=== PATIENT | male | born 1950 | race Caucasian/White ===

== ENCOUNTER 2019-07-27 15:46 | Inpatient (IN) | payer MEDICARE, OTHER, SELFPAY ==
[2019-07-27] MEDS ORDERED: Nitroglycerin 50 MG/250 ML BOT 250 ML ONE (15:55)
[2019-07-27 16:07] LABS: Actual Bicarbonate (HCO3a) 26.2 mEq/L (22-28); Analyzer IN Cardio ER; Base Excess (BEa) -3.2 mEq/L (-2.0 to +3.0); Calcium, Ionized 1.19 mmol/L (1.12-1.30); Carboxyhemoglobin (COHb) 1.1 gm% (0.0-3.0); Hemoglobin (Hb) 16.7 g/dL (14.0-18.0); O2 Tension (PaO2) 145.8 mmHg (> 80.0); Potassium - ABG Lab 4.27 mmol/L (3.70-5.30)
[2019-07-27 16:08] LABS: CO2 Tension 65.1 mmHg (35.0-45.0); pH, Arterial 7.22 (7.35-7.45)
[2019-07-27] MEDS ORDERED: Labetalol HCl 100 MG/20 ML VIAL ONE (16:08)
[2019-07-27] MEDS ORDERED: Furosemide 40 MG/4 ML VIAL ONE (16:08)
[2019-07-27 16:09] LABS: ALV-art Gradient 58.025 (0-20); Puncture Site LRA
[2019-07-27 16:16] LABS: #Basophils 0.1 thou/uL (0.0-0.2); #Eosinphils 0.1 thou/uL (0.0-0.7); #Lymphocytes 3.1 thou/uL (1.20-3.40); #Monocytes 0.7 thou/uL (0.11-0.59); %Basophils 0.4 % (0.0-1.0); %Monocytes 4.6 % (0.0-10.0); %Neutrophils 71.9 % (42.0-75.0); Hemoglobin 16.3 g/dL (14.0-18.0); Mean Corpuscular HGB CONC 32.1 g/dL (32.0-36.0); Mean Corpuscular Hemoglobin 28.4 pg (27.0-31.0); Mean Corpuscular Volume 88.5 fL (78.0-98.0); Mean Platelet Volume 8.1 fL (7.4-10.4); Platelet Count 223 thou/uL (130-400); RBC Distribution Width 13.3 % (11.5-14.5); Red Blood Cell (RBC) Count 5.72 mill/uL (4.70-6.10); White Blood Cell (WBC) Count 13.9 thou/uL (4.8-10.8)
--- NOTE | 2019-07-27 16:29 | RAD ---
Exam: Chest one view HISTORY: Difficulty breathing. Decreased O2 saturation on room air. Comparison: The 2014 FINDINGS: Cardiac silhouette:Upper normal cardiac silhouette. Aorta: Atherosclerosis of the aortic knob Pulmonary vessels: Normal Costophrenic angles: Small right-sided pleural effusion. LUNGS: Patchy interstitial and alveolar opacities. Lungs are hyperinflated. Pneumothorax: None Osseous abnormalities: None IMPRESSION: Possible volume overload. Superimposed bibasilar pneumonia and/or aspiration cannot be excluded. Cont inued surveillance is recommended
[2019-07-27 16:45] LABS: ALT (SGPT) 24 U/L (8-55); AST (SGOT) 26 U/L (5-34); Albumin 4.5 g/dL (3.4-4.8); Alkaline Phosphatase 89 U/L (40-110); Anion Gap 16 mmol/L (10-20); BUN (Urea Nitrogen) 19 mg/dL (8.4-25.7); Bilirubin, Total 0.6 mg/dL (0.2-1.2); Calc. Creatinine Clearance 0 mL/min (70-130); Carbon Dioxide 26 mmol/L (23-31); Chloride 103 mmol/L (98-107); Estimated GFR-MDRD 74; Glucose 193 mg/dL (80-115); Lipase 20 U/L (8-78); Magnesium 2.2 mg/dL (1.6-2.6); Potassium 4.7 mmol/L (3.5-5.1); Protein, Total 7.5 g/dL (5.8-8.1); Sodium 140 mmol/L (136-145)
[2019-07-27] MEDS ORDERED: Nitroglycerin 2% Ointment 1 INCH/1 GM Packet ONE (17:49)
[2019-07-27 18:06] LABS: Bacteria/HPF 4+ HPF (None Seen); Bilirubin Negative (Negative); Blood, Urine Trace (Negative); Clarity Clear (Clear); Glucose, Urine (Dipstick) Normal (Negative); Leukocyte Negative Leu/uL (Negative); Nitrite Negative (Negative); Protein, Urine (Dipstick) 10 mg/dL (Neg-Trace); RBC/HPF 0-3 HPF (0-3); Squamous Epithelial None Seen HPF (0-3); Urobilinogen Normal mg/dL (Less than 2); WBC/HPF 0-3 HPF (0-3)
--- NOTE | 2019-07-27 18:19 | PDOC.FPRHP ---
- History of Present Illness Chief Complaint: SOB History of Present Illness: Patient is a 69M with PMHx of 2 strokes, 2 FL, and HTN that presented to the ED with acute onset SOB. Patient reports that he had one episode of SOB on Thursday. Daughter described that it looked like patient was "hyperventilating." Patient then had another acute-onset episode of SOB today which caused him to come to the ED. Per patient he quit smoking cigarettes 1 month ago and asked for a cigarette today, thinks that that may be what caused his SOB. Patient denies cp at this time, and on evaluation is resting comfortably on the bipap machine. Had initial BP in ED of 208/162, which has since normalized with nitro drip and labetalol. Patient has had kidney stones in the past, 2013, and saw Dr. Paredes at that time but has not seen him since then. 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 denies: cough Cardiovascular: reports: edema. denies: chest pain Gastrointestinal: denies: nausea, vomiting, diarrhea Genitourinary: reports: incontinence. denies: discharge Skin: denies: lesions, jaundice Musculoskeletal: reports: swelling. denies: pain Neurological: reports: other (left-sided paralysis) Psychological: denies: anxiety, depression - Vital signs BP: [139/93] HR: [99] RR: [26] Tmax: [98.4] Pox: [99]% on [bipap] Wt: [113.4kg ] - Physical Exam Constitutional: NAD, awake, alert and oriented HEENT: EOMI, MMM Neck: supple, FROM Chest: no-tender to palpation, no lesions Heart: RRR, normal S1/S2, other (1+ pitting edema LLE) Lungs: other (crackles throughout, moreso lung bases) Abdomen: soft, non-tender Musculoskeletal: normal structure, normal tone, other (poor movement of left arm adn leg) Neurological: normal sensation, other (poor movement of left arm and leg, though can wiggle fingers and toes) Skin: good turgor, no jaundice Heme/Lymphatic: no unusual bruising or bleeding, no purpura Psychiatric: normal mood and affect, good judgment and insight FMR H&P: Results - Labs Result Diagrams: 07/28/19 02:14 07/28/19 02:14 Lab results: WBC 13.9 thou/uL (4.8-10.8) H 07/27/19 16:00 Hgb 16.3 g/dL (14.0-18.0) 07/27/19 16:00 Hct 50.6 % (42.0-52.0) 07/27/19 16:00 MCV 88.5 fL (78.0-98.0) 07/27/19 16:00 Plt Count 223 thou/uL (130-400) 07/27/19 16:00 Neutrophils % 71.9 % (42.0-75.0) 07/27/19 16:00 ABG pH 7.22 (7.35-7.45) L* 07/27/19 16:03 ABG pCO2 65.1 mmHg (35.0-45.0) H* 07/27/19 16:03 ABG pO2 145.8 mmHg (> 80.0) H 07/27/19 16:03 Sodium 140 mmol/L (136-145) 07/27/19 16:00 Potassium 4.7 mmol/L (3.5-5.1) 07/27/19 16:00 Chloride 103 mmol/L (98-107) 07/27/19 16:00 Carbon Dioxide 26 mmol/L (23-31) 07/27/19 16:00 BUN 19 mg/dL (8.4-25.7) 07/27/19 16:00 Creatinine 1.00 mg/dL (0.7-1.3) 07/27/19 16:00 Glucose 193 mg/dL (80-115) H 07/27/19 16:00 Lactic Acid 1.7 mmol/L (0.5-2.2) 07/27/19 16:35 Calcium 9.0 mg/dL (7.8-10.44) 07/27/19 16:00 Total Bilirubin 0.6 mg/dL (0.2-1.2) 07/27/19 16:00 AST 26 U/L (5-34) 07/27/19 16:00 ALT 24 U/L (8-55) 07/27/19 16:00 Alkaline Phosphatase 89 U/L (40-110) 07/27/19 16:00 Serum Total Protein 7.5 g/dL (5.8-8.1) 07/27/19 16:00 Albumin 4.5 g/dL (3.4-4.8) 07/27/19 16:00 Lipase 20 U/L (8-78) 07/27/19 16:00 Urine Ketones Negative mg/dL (Negative) 07/27/19 17:30 Urine Blood Trace (Negative) A 07/27/19 17:30 Urine Nitrite Negative (Negative) 07/27/19 17:30 Ur Leukocyte Esterase Negative Gabriel/uL (Negative) 07/27/19 17:30 Urine RBC 0-3 HPF (0-3) 07/27/19 17:30 Urine WBC 0-3 HPF (0-3) 07/27/19 17:30 Ur Squamous Epith Cells None Seen HPF (0-3) 07/27/19 17:30 Urine Bacteria 4+ HPF (None Seen) A 07/27/19 17:30 - EKG Interpretation EKG: sinus tachycardia - Radiology Interpretation Chest x-ray Status: report reviewed by me (Possible volume overload. Superimposed bibasilar pneumonia and/or aspiration cannot be excluded. Continued surveillance recommended.) FMR H&P: A/P - Problem List (1) Hypertensive emergency Current Visit: Yes Status: Acute Code(s): I16.1 - HYPERTENSIVE EMERGENCY (2) Flash pulmonary edema Current Visit: Yes Status: Acute Code(s): J81.0 - ACUTE PULMONARY EDEMA (3) Acute respiratory failure with hypoxia Current Visit: Yes Status: Acute Code(s): J96.01 - ACUTE RESPIRATORY FAILURE WITH HYPOXIA (4) Acute on chronic diastolic (congestive) heart failure Current Visit: Yes Status: Acute Code(s): I50.33 - ACUTE ON CHRONIC DIASTOLIC (CONGESTIVE) HEART FAILURE - Plan Patient is a 69M with PMHx of 2 strokes, 2 FL, and HTN that is admitted for hypertensive emergency, flash pulmonary edema, and new-onset CHF #Hypertensive Emergency #Flash pulmonary edema #Acute hypoxic respiratory failure -patient presented to ED with initial BP 208/162 -acute onset SOB -CXR demonstrates volume-overload -ABG demonstrates respiratory acidosis, likely due to flush pulmonary edema -received nitropaste, labetalol, furosemide, and nitro drip in ED, with BP on evaluation 139/93 -patient able to converse in full-sentences on bipap, will continue to monitor on bipap and re-evaluate necessity of bipap machine later tonight -will admit to IMCU for increased monitoring -will monitor urine output and consider adding another dose of furosemide later tonight, will continue furosemide tomorrow -prn hydralazine -patient not currently taking any medications; will adjust BP medications throughout hospitalization to optimize outpatient BP control -TSH, FLP, A1C pending #Acute on chronic diastolic CHF -CXR demonstrates volume-overload -crackles throughout on lung exam -BNP pending -last echo 2013: EF 50-55% with evidence of diastolic dysfunction; trace aortic valve regurgitation, mild tricuspid and mitral valve regurgitation -echo ordered, will follow -will continue IV furosemide and try to maintain BP control -strict I&O/daily weights DVT ppx: lovenox Diet: NPO Dispo: inpatient for respiratory support, BP monitoring and medication titration Code: Full PCP: none-CC Patient was evaluated by and case discussed with Dr. Delgado who is in agreement with current plan of care. FMR H&P: Upper Level - Plan Date/Time: 07/27/191818 IJose MD, have evaluated this patient and agree with findings/ plan as outlined by international sales manager resident. Pertinent changes/additions are listed here. 69 yo male with extensive PMH; however, has not been taking any medication for over 2 years presents with an acute onset SOB that occurred over several minutes today. Please see international sales manager note above for further information. 1. HTN Emergency - s/p Nitro drip in ED - BP now normotensive - Nitropaste on currently - PRN BP medications available - Plan to start RONI-I in AM 2. Acute on Chronic CHF - s/p Lasix - Strict I&Os - Daily Weights - ECHO ordered 3. Acute Hypoxic Respiratory Failure - BIPAP in place - Will wean as tolerated PCP: CC - None CODE STATUS: FULL CODE Disposition: Stable, will admit to IMCU For further evaluation and treatment. Patient was seen and evaluated with Dr. Edinson Delgado who is in agreement with plan. Addendum - Attending - Attending Attestation Date/Time: 07/28/19 [id number] I personally evaluated the patient and discussed the management with the team on 07/27. I agree with the History, Examination, Assessment and Plan documented above with any addition or exceptions noted below.
[2019-07-27] MEDS ORDERED: Ondansetron ODT 4 MG TAB PO PRN (18:39)
[2019-07-27] MEDS ORDERED: Acetaminophen 325 MG TAB PO PRN (18:39)
[2019-07-27] MEDS ORDERED: hydrALAZINE 20 MG/ML VIAL SLOW IVP PRN ×2 (18:39→18:42)
[2019-07-27 20:41] LABS: CKMB 1.7 ng/mL (0-6.6)
[2019-07-27] MEDS ORDERED: Furosemide 20 MG/2 ML VIAL ONE (23:00)
[2019-07-27 23:53] LABS: CKMB 1.9 ng/mL (0-6.6)
[2019-07-28 02:25] LABS: #Lymphocytes 1.2 thou/uL (1.20-3.40); #Monocytes 0.9 thou/uL (0.11-0.59); #Neutrophils 7.8 thou/uL (1.40-6.50); %Basophils 0.1 % (0.0-1.0); %Eosinophils 0.3 % (0.0-10.0); %Lymphocytes 12.2 % (21.0-51.0); %Monocytes 9.4 % (0.0-10.0); %Neutrophils 78.1 % (42.0-75.0); Hemoglobin 14.4 g/dL (14.0-18.0); Mean Corpuscular HGB CONC 33.3 g/dL (32.0-36.0); Mean Corpuscular Hemoglobin 29.1 pg (27.0-31.0); Mean Corpuscular Volume 87.5 fL (78.0-98.0); Mean Platelet Volume 7.6 fL (7.4-10.4); Platelet Count 184 thou/uL (130-400); RBC Distribution Width 13.2 % (11.5-14.5); Red Blood Cell (RBC) Count 4.96 mill/uL (4.70-6.10)
[2019-07-28 02:57] LABS: Anion Gap 13 mmol/L (10-20); BUN (Urea Nitrogen) 18 mg/dL (8.4-25.7); Calc. Creatinine Clearance 104 mL/min (70-130); Calcium 9.1 mg/dL (7.8-10.44); Carbon Dioxide 30 mmol/L (23-31); Cardiac Risk 2.9 (Less than 4.5); Chloride 103 mmol/L (98-107); Cholesterol 136 mg/dl (< 200 Desired); Estimated GFR-MDRD 83; Glucose 93 mg/dL (80-115); HDL Cholesterol 47 mg/dL (>60 Neg Risk); LDL Cholesterol, Calculated 77 mg/dL; Potassium 3.6 mmol/L (3.5-5.1); Sodium 142 mmol/L (136-145); Triglycerides 59 mg/dL (Less than 150)
[2019-07-28 03:16] LABS: CKMB 2.1 ng/mL (0-6.6)
[2019-07-28 03:27] LABS: Hemoglobin A1c 5.1 % (4.0-6.0)
[2019-07-28] MEDS: Furosemide 20 MG/2 ML VIAL SLOW IVP SCH ×2 (05:58→16:37)
--- NOTE | 2019-07-28 07:21 | PDOC.FM ---
- Subjective Subjective: Feeling well this morning. Denies chest pain, shortness of breath. Now on room air. Would like to order breakfast. No other concerns. Crow in place. - Objective MAR Reviewed: Yes Vital Signs & Weight: Vital Signs (12 hours) Temp 07/28/19 07:00 98.2 F 07/28/19 03:14 98.6 F 07/28/19 00:40 98.5 F Weight Weight 94.432 kg Most Recent Monitor Data Heart Rate from ECG 102 NIBP 128/74 NIBP BP-Mean 92 Respiration from ECG 27 SpO2 97 I&O: 07/27/19 07/28/19 07/29/19 06:59 06:59 06:59 Intake Total 0 Output Total 850 Balance -850 Result Diagrams: 07/28/19 02:14 07/28/19 02:14 Phys Exam - Physical Examination Constitutional: NAD HEENT: moist MMs Neck: supple Respiratory: no wheezing, clear to auscultation bilateral Tachycardic Gastrointestinal: soft, non-tender Musculoskeletal: edema present left sided weakness Psychiatric: normal affect, A&O x 3 Deviation from normal: venous stasis changes on b/l legs Dx/Plan - Plan Plan: Patient is a 69M with PMHx of 2 strokes, 2 NH, and HTN that is admitted for hypertensive emergency, flash pulmonary edema, and new-onset CHF Hypertensive Emergency - Initial BP 208/162, now 130's/70's - CXR with pulm edema and ABG w/ respiratory acidosis - Continue lasix 20mg IV BID, starting lisinopril today. Has Hydralazine PRN. If BP spikes today will start low dose Coreg. - Has had a good response with IV diuresis - TSH/FLP/A1c all wnl. Acute Hypercapnic Respiratory Failure Failure - Initially on BPAP, now 99% on 2L NC - Expect to continue to improve with diuresis Acute HFpEF exacerbation - CXR with pulm edema, initially with crackles on exam. BNP 1082. - Echo 2013: EF 50-55% with evidence of diastolic dysfunction; trace aortic valve regurgitation, mild tricuspid and mitral valve regurgitation - Echo ordered - Continue IV diuresis - Strict I&O/daily weights DVT ppx: lovenox Diet: NPO Code: DNR Dispo: Home once medically stable. Would like home health services. Consulted CM Addendum - Attending - Attending Attestation Date/Time: 07/28/19 1002 I personally evaluated the patient and discussed the management with Dr. Mittal. I agree with the History, Examination, Assessment and Plan documented above with any addition or exceptions noted below. Patient feeling improved. BP more controlled. Echo pending as he likely has some degree of CHF. Cardiology consulted overnight. Patient denies complaints. Will need escalation of BP therapy. If BP stable through the afternoon, should be stable for transfer to floor.
[2019-07-28] MEDS: Enoxaparin Sodium 40 MG/0.4 ML SYRINGE SC SCH (10:03)
[2019-07-28] MEDS: Lisinopril 5 MG TAB PO SCH (10:03)
[2019-07-28] MEDS ORDERED: Potassium Chloride 20 MEQ TAB PO SCH (19:00)
--- NOTE | 2019-07-28 19:14 | CON ---
DATE OF CONSULTATION: 07/28/2019 REASON FOR CONSULTATION: Heart failure. HISTORY OF PRESENT ILLNESS: Mr. Gillespie is a 69-year-old white gentleman, who comes to the hospital for shortness of breath. He had acute onset of shortness of breath about five days ago. He came in and was found to be in florid heart failure, so he was put on a BiPAP machine and started getting diuresed. His blood pressure at that time was about 200/160, so he was diagnosed with hypertensive emergency and admitted. His blood pressure is much better controlled and he has been diuresed very well, and he is feeling much better, not quite back to normal. He does have a history of previous stroke and he has left-sided weakness and he cannot really get up, cannot move his leg or his arm. He denies any chest pain, tightness, or pressure. PAST MEDICAL HISTORY: 1. CVA x2 in the past. 2. He had a hemorrhagic, who left the patient with left-sided paralysis. 3. Coronary artery disease, status post [place] x2 in the past. 4. Kidney stones. PAST SURGICAL HISTORY: Right leg surgery. FAMILY HISTORY: Mother passed from cardiac related issues. SOCIAL HISTORY: A pack of cigarettes will last him 2 or 3 days for many, many years now. He states he quit a month ago. Occasional alcohol use. No drug use. OUTPATIENT MEDICATIONS: None. ALLERGIES: NO KNOWN DRUG ALLERGIES. REVIEW OF SYSTEMS: A 12-point review of systems was done and was all negative except as stated in the history of present illness. PHYSICAL EXAMINATION: VITAL SIGNS: Temperature 99.0, pulse 104, respiratory rate 26, saturation 97% on room air, blood pressure 116/78. GENERAL: Awake, alert, and oriented x3. No distress. HEENT: Normocephalic and atraumatic. NECK: Supple. LUNGS: Have mild crackles at the bases. CARDIOVASCULAR: S1 and S2. There is a grade 3/6 systolic murmur in the right upper sternal border. ABDOMEN: Soft. Positive bowel sounds. EXTREMITIES: 1+ edema. SKIN: Warm and dry. LABORATORY DATA: Laboratory work was reviewed. White count of 10, hemoglobin of 14, hematocrit of 43, platelet count of 184. ABG was reviewed. Chemistries were reviewed. Troponins were indeterminate in the range of 0.05, 0.07, and 0.05. BNP was 1082. Normal electrolytes. Normal BUN and creatinine. UA was unremarkable. Echocardiogram was reviewed. He has a reduced LV function, which is something new. He has had diastolic dysfunction in the past, but currently on the echocardiogram done today, his EF was measured at 20% to 25%. ASSESSMENT: 1. Acute on chronic systolic heart failure. New onset systolic dysfunction. 2. Dilated cardiomyopathy. 3. History of cerebrovascular accident. 4. History of myocardial infarctions in the past. PLAN: 1. At this point, I spoke with Mr. Gillespie about possibly doing any procedure. He tells me that he will only take medications. He does not want any procedures done. He is not interested in a heart catheterization, not interested in defibrillators, LifeVest or anything of that sort. He only wants to take pills. He wants to be a DNR/DNI. He states that if he goes, he goes and he is okay with that. He does not want any invasive interventions. 2. At this point, I agree with continued IV diuresis. We will start guideline directed therapy as soon as feasible. He is already on 5 mg a day of lisinopril. We will try to add a beta-eugene once if his blood pressure allows. Thank you for letting us participate in the care of your patient. We will follow. Job ID: [id number]
[2019-07-28] MEDS ORDERED: FLU VACC TS2019-20(65YR UP)/PF 180 MCG/0.5 ML SYRINGE IM ONE (21:00)
[2019-07-28] MEDS ORDERED: Prevnar 13-Val Conj/PF 0.5 ML SYRINGE IM ONE (21:00)
--- NOTE | 2019-07-29 01:23 | CON ---
DATE OF CONSULTATION: 07/28/2019 SERVICE: Pulmonary Medicine. REASON FOR CONSULT: [facility] patient. HISTORY OF PRESENT ILLNESS: The patient is a 69-year-old white male. He was in his usual state of health when he had a cigarette. Immediately following this, he started having onset shortness of breath. It did not clear and he ultimately presented to the emergency department. He denies any current fevers, chills, nausea, vomiting, chest discomfort, abdominal pain, diarrhea. He is not having any problems with hot or red swollen joints, or arthralgias. In the emergency department, he was given a dose of Lasix. He required BiPAP intermittently, but by the time he got to the [facility], he was taken off it, he has been breathing comfortably ever since. Overall, he is satisfied with the progress he has made today. He is nearly back to baseline from a respiratory standpoint based on his analysis. PAST MEDICAL HISTORY: 1. Coronary artery disease. 2. Nephrolithiasis. 3. History of CVA, 1 hemorrhagic and 1 ischemic. 4. Debility with chronic left-sided hemiparalysis. PAST SURGICAL HISTORY: Right leg surgery following blood clot. FAMILY HISTORY: Noncontributory. SOCIAL HISTORY: Smokes a pack on a daily basis. He recently quit about a month ago, but "bumped a cigarette from his daughter" prior to this event happening. Alcohol and illicit drugs are not present. He has he has no exposure to chemicals, dust, asbestos, or tuberculosis. He has a greater than 50 pack-year history of smoking. ALLERGIES: NO KNOWN DRUG ALLERGIES. MEDICATIONS: List of his inpatient medications was reviewed. No updates were made at this time. REVIEW OF SYSTEMS: General, head, ears, eyes, nose, throat, cardiovascular, respiratory, GI, , musculoskeletal, neurologic, and skin is negative except as mentioned in HPI. PHYSICAL EXAMINATION: VITAL SIGNS: Afebrile, pulse 104, blood pressure 116/78, respirations 26, saturation 97%, currently on 2 L nasal cannula. GENERAL: The patient is awake and alert, in no apparent distress. LUNGS: Decent air entry. There is a minimally prolonged expiratory phase. Wheezing and crackles are both present. The crackle is predominate. No rhonchi appreciated. HEART: Normal rate regular. ABDOMEN: Soft, nontender, nondistended. Bowel sounds are positive. MUSCULOSKELETAL: No cyanosis or clubbing. There is 1 to 2+ pitting throughout. NEUROLOGIC: Left-sided hemiparesis is present. LABORATORY DATA: WBC 10.0 and normal. Hemoglobin 14.4, platelets 184,000. His differential was normal on presentation. PH 7.22, pCO2 65, pO2 145, when he was on BiPAP with a FiO2 of 40%. Basic metabolic profile is essentially unremarkable except for potassium of 3.6. Liver function studies are otherwise unremarkable. BNP 1082 on presentation, which represents a historic high. Troponin has been downtrending to 0.51. TSH and lipase are unremarkable. Blood cultures x2 are unremarkable. IMAGIN. Echocardiogram demonstrates a 20% to 25% ejection fraction with likely diastolic dysfunction, though atrial fibrillation is present preventing evaluation there. No significant valvular abnormalities are noted. 2. Chest x-ray demonstrates bilateral pleural effusions. Fluid greater on the right compared to the left. There is fluid in the fissure. Cephalization and pulmonary vascular congestion are noted. Cardiomegaly is otherwise appreciated despite the fact this is an AP film. ASSESSMENT: 1. Acute hypoxic respiratory failure. 2. Acute systolic heart failure. 3. Atrial fibrillation. 4. Hypertensive emergency. DISCUSSION AND PLAN: We are going to continue to diurese the patient down to euvolemia. I will replace his potassium. Nitroglycerin paste will be removed from his chest. If his blood pressures remain stable, he can be transitioned to the telemetry unit. Cardiology consultation will be required, if this is new. He has no further requirements for inpatient pulmonary or critical care opinion and I will sign off. Please call with additional questions or concerns through time. 70 minutes have been devoted to this patient in various activities. I personally reviewed all imaging studies and laboratory data noted within this document. For fifty percent of this time, I was interacting with the patient at the bedside or coordinating care with the care team. For the remainder of the time I was immediately available to the patient in the hospital unit. Job ID: [id number] [facility]
[2019-07-29] MEDS: Furosemide 20 MG/2 ML VIAL SLOW IVP SCH ×2 (05:30→13:30)
[2019-07-29 05:35] LABS: Anion Gap 10 mmol/L (10-20); BUN (Urea Nitrogen) 17 mg/dL (8.4-25.7); Calc. Creatinine Clearance 94 mL/min (70-130); Calcium 9.5 mg/dL (7.8-10.44); Carbon Dioxide 33 mmol/L (23-31); Chloride 101 mmol/L (98-107); Estimated GFR-MDRD 74; Glucose 82 mg/dL (80-115); Magnesium 2.2 mg/dL (1.6-2.6); Potassium 3.4 mmol/L (3.5-5.1); Sodium 141 mmol/L (136-145)
--- NOTE | 2019-07-29 06:35 | PDOC.FM ---
- Subjective Subjective: No overnight events. Denies chest pain, shortness of breath. Improvement in LE edema. Does not want any procedures such as cath or defibrillator. Is willing to take medications for medical management. - Objective MAR Reviewed: Yes Vital Signs & Weight: Vital Signs (12 hours) Temp Pulse Resp BP Pulse Ox 07/29/19 04:00 98.3 F 101 H 18 165/102 H 93 L 07/28/19 23:44 98.5 F 07/28/19 19:42 98.8 F Weight Weight 93.894 kg Most Recent Monitor Data Heart Rate from ECG 103 NIBP 112/84 NIBP BP-Mean 93 Respiration from ECG 19 SpO2 98 I&O: 07/27/19 07/28/19 07/29/19 06:59 06:59 06:59 Intake Total 0 600 Output Total 850 1900 Balance -850 -1300 Result Diagrams: 07/28/19 02:14 07/29/19 04:06 Phys Exam - Physical Examination Constitutional: NAD HEENT: moist MMs Neck: supple Respiratory: no wheezing, clear to auscultation bilateral Cardiovascular: RRR, no significant murmur Gastrointestinal: soft, non-tender, positive bowel sounds Musculoskeletal: edema present (trace) Neurological: moves all 4 limbs Psychiatric: normal affect, A&O x 3 Deviation from normal: venous stasis changes b/l LE Dx/Plan - Plan Plan: Patient is a 69M with PMHx of 2 strokes, 2 [place], and HTN that is admitted for hypertensive emergency, flash pulmonary edema, and new-onset CHF Acute CHF exacerbation with new onset systolic HF. - Echo: EF 20-25%, Afib - Continue lisinopril, start Coreg 3.125mg BID and atorvastatin 40. - Cardiology consulted. Pt declined cath and defibrillator - Continue IV diuresis - Strict I&O/daily weights Afib - Chadsvasc 6 - Will discuss anticoagulation with patient. HTN - Lisinopril and Coreg as above Hypertensive Emergency, Resolved Hx of CVA/GA - Start Atorvastatin and ASA Acute Hypercapnic Respiratory Failure, resolved DVT ppx: lovenox Code Status: DNR Addendum - Attending - Attending Attestation Date/Time: 07/29/19 1120 I personally evaluated the patient and discussed the management with Dr. Mittal. I agree with the History, Examination, Assessment and Plan documented above with any addition or exceptions noted below. Patient with new onset systolic CHF. However, he is declining any and all interventions. He will be treated medically. We are working on improved BP control today, therapy, and risk stratification as he also has new diagnosis of Afib. His fluid status is improved today but will need continued diuresis with his new diagnosis.
[2019-07-29] MEDS ORDERED: Carvedilol 3.125 MG TAB PO SCH (08:00)
[2019-07-29] MEDS: Potassium Chloride 20 MEQ TAB PO SCH ×2 (09:27→18:04)
[2019-07-29] MEDS: Enoxaparin Sodium 40 MG/0.4 ML SYRINGE SC SCH (09:28)
[2019-07-29] MEDS: Lisinopril 5 MG TAB PO SCH (09:28)
--- NOTE | 2019-07-29 15:27 | PDOC.CPN ---
- Subjective Date: 07/29/19 Time: 15:24 Interval history: His breathing is better. No chest pain. - Review of Systems General: denies: fever/chills, weight/appetite/sleep changes, night sweats, fatigue Respiratory: reports: shortness of breath. denies: cough, congestion, exercise intolerance Cardiovascular: denies: chest pain, palpitation, edema, paroxysmal nocturnal dyspnea, orthopnea Gastrointestinal: denies: nausea, vomiting, diarrhea, constipation, abd pain, GI bleeding Musculoskeletal: denies: pain, tenderness, stiffness, swelling, arthritis/ arthralgias Neurological: denies: numbness, syncope, seizure, weakness - Objective Allergies/Adverse Reactions: Allergies Allergy/AdvReac Type Severity Reaction Status Date / Time No Known Allergies Allergy Verified 03/10/14 00:26 Visit Medications: Current Medications Acetaminophen (Tylenol) 650 mg PO Q4H PRN PRN Reason: Headache/Fever/Mild Pain (1-3) Aspirin (Ecotrin) 325 mg PO DAILY [facility] Atorvastatin Calcium (Lipitor) 40 mg PO HS [facility] Carvedilol (Coreg) 3.125 mg PO BID-[facility] Last Admin: 07/29/19 09:35 Dose: 3.125 mg Enoxaparin Sodium (Lovenox) 40 mg SC 0900 [facility] Last Admin: 07/29/19 09:28 Dose: 40 mg Furosemide (Lasix) 20 mg SLOW IVP 0600,1400 [facility] Last Admin: 07/29/19 13:30 Dose: 20 mg Hydralazine HCl (Apresoline) 5 mg SLOW IVP Q15MIN PRN PRN Reason: SBP > 180 Lisinopril (Zestril) 5 mg PO DAILY [facility] Last Admin: 07/29/19 09:28 Dose: 5 mg Ondansetron HCl (Zofran Odt) 4 mg PO Q6H PRN PRN Reason: Nausea/Vomiting Potassium Chloride (K-Dur) 40 meq PO BID-[facility] Stop: 07/29/19 17:01 Last Admin: 07/29/19 09:27 Dose: 40 meq Vital Signs & Weight: Vital Signs Temp Pulse Pulse Pulse Resp BP BP 07/29/19 13:16 82 153/96 H 07/29/19 11:57 99.0 F 103 H 16 07/29/19 10:32 107 H 106 H 140/94 H 155/92 H 07/29/19 09:28 114 H 07/29/19 08:00 98.2 F 114 H 18 07/29/19 04:00 98.3 F 101 H 18 BP Pulse Ox 07/29/19 13:16 07/29/19 11:57 97 07/29/19 10:32 07/29/19 09:28 07/29/19 08:00 139/92 H 93 L 07/29/19 04:00 165/102 H 93 L Weight 198 lb 14.4 oz - Physical Exam General: alert & oriented x3 HEENT: mucus membranes moist Neck: supple neck Cardiac: irregularly regular Lungs: clear to auscultation Neuro: weakness Abdomen: active bowel sounds Extremities: no edema Skin: clear Musculoskeletal: no pain - Labs Result Diagrams: 07/28/19 02:14 07/29/19 04:06 Troponin/CKMB CK-MB (CK-2) 2.1 ng/mL (0-6.6) 07/28/19 02:14 Troponin I 0.051 ng/mL (< 0.028) H 07/28/19 02:14 - Telemetry Supraventricular conduction: atrial fibrillation - Assessment/Plan Assessment/Plan: 1. New onset dilated CM 2. Acute on chronic systolic heart failure EF at 20-25% 3. Chronic afib, rate controlled. 4. Hx of CVA PLAN: - He states he has had a change of mind. He still does not want a LHC but states he would be interested in a lifevest. - After a long discussion with him about his current condition we decided to treat medically for now and home on a lifevest. He may consider LHC in the future but not at this time. 3 - Continue guideline directed medical therapy.
[2019-07-29] MEDS ORDERED: Loperamide HCl 2 MG CAP PO PRN (16:08)
[2019-07-29] MEDS: Carvedilol 3.125 MG TAB PO SCH (18:04)
[2019-07-29] MEDS: Enoxaparin Sodium 100 MG/ML SYRINGE SC SCH (20:27)
[2019-07-29] MEDS: Atorvastatin Calcium 40 MG TAB PO SCH (20:27)
[2019-07-29] MEDS ORDERED: Sacubitril 24.5 MG/Valsartan 25.5 MG TABLET PO SCH (21:00)
[2019-07-30] MEDS: Furosemide 20 MG/2 ML VIAL SLOW IVP SCH ×2 (06:03→13:54)
--- NOTE | 2019-07-30 06:28 | PDOC.FM ---
- Subjective Subjective: Mr. Gillespie is doing well this morning, he asked when he was going home. He was up , and sitting on the side of the bed. - Objective MAR Reviewed: Yes Vital Signs & Weight: Vital Signs (12 hours) Temp Pulse Resp BP Pulse Ox 07/30/19 03:57 98.4 F 90 18 126/82 92 L 07/29/19 19:30 98.3 F 105 H 18 139/84 94 L Weight Weight 90.22 kg Most Recent Monitor Data Heart Rate from ECG 103 NIBP 112/84 NIBP BP-Mean 93 Respiration from ECG 19 SpO2 98 I&O: 07/28/19 07/29/19 07/30/19 06:59 06:59 06:59 Intake Total 0 600 720 Output Total 850 2500 2400 Balance -850 1900 -1680 Result Diagrams: 07/28/19 02:14 07/29/19 04:06 Phys Exam - Physical Examination Constitutional: NAD HEENT: PERRLA, moist MMs, sclera anicteric Neck: supple, full ROM Respiratory: no wheezing, no rhonchi, clear to auscultation bilateral fine crackles in the bases bilaterally Cardiovascular: RRR, no significant murmur, no rub Gastrointestinal: soft, non-tender Musculoskeletal: pulses present trace edema bilaterally however, skin creases present indicating significant diuresis. Neurological: non-focal, normal sensation Psychiatric: normal affect, A&O x 3 Skin: no rash, normal turgor Dx/Plan (1) Acute on chronic diastolic (congestive) heart failure Code(s): I50.33 - ACUTE ON CHRONIC DIASTOLIC (CONGESTIVE) HEART FAILURE Status : Acute (2) Acute respiratory failure with hypoxia Code(s): J96.01 - ACUTE RESPIRATORY FAILURE WITH HYPOXIA Status: Acute (3) Flash pulmonary edema Code(s): J81.0 - ACUTE PULMONARY EDEMA Status: Acute (4) Hypertensive emergency Code(s): I16.1 - HYPERTENSIVE EMERGENCY Status: Acute (5) Hypertension Code(s): I10 - ESSENTIAL (PRIMARY) HYPERTENSION Status: Acute - Plan Plan: Patient is a 69M with PMHx of 2 strokes, 2 OK, and HTN that is admitted for hypertensive emergency, flash pulmonary edema, and new-onset CHF Acute on chronic diastolic CHF - Echo: EF 20-25%, Afib - On Coreg 3.125mg BID, Entresto, spironolactone and atorvastatin 40. ( Lisinopril discontinued) - Cardiology consulted, appreciate recommendations. Patient declined catheterization, instead desires medical management and lifevest. - Consider transition to po Lasix in preparation for d/c. - Awaiting recommendations from cardiology for lifevest and anticoagulation plan for d/c. Afib - Chadsvasc 6 - After discussion of risks and benefits, patient elected for full anticoagulation. On therapeutic lovenox. HTN - Entresto and Coreg as above Hx of CVA/OK - Start Atorvastatin and ASA Hypertensive Emergency, resolved Flash pulmonary edema, w/ acute hypoxic respiratory failure, resolved DVT ppx: therapeutic lovenox Diet: HH Dispo: inpatient, stable Code: Full PCP: none-CC
[2019-07-30] MEDS: Spironolactone 25 MG TAB PO SCH (09:22)
[2019-07-30] MEDS: Aspirin 325 mg Enteric Coated Tablet PO SCH (09:22)
[2019-07-30] MEDS: Enoxaparin Sodium 100 MG/ML SYRINGE SC SCH ×2 (09:22→21:29)
[2019-07-30] MEDS: Carvedilol 3.125 MG TAB PO SCH ×2 (09:22→17:23)
[2019-07-30] MEDS: Sulfameth/Trimethoprim DS 800-160mg TAB PO SCH (21:29)
[2019-07-30] MEDS: Atorvastatin Calcium 40 MG TAB PO SCH (21:29)
--- NOTE | 2019-07-31 05:52 | PDOC.FM ---
- Subjective Subjective: Doing well this morning, eager to be discharged. - Objective MAR Reviewed: Yes Vital Signs & Weight: Vital Signs (12 hours) Pulse Ox 07/30/19 20:45 95 Weight Weight 90.22 kg Most Recent Monitor Data Heart Rate from ECG 103 NIBP 112/84 NIBP BP-Mean 93 Respiration from ECG 19 SpO2 98 I&O: 07/29/19 07/30/19 07/31/19 06:59 06:59 06:59 Intake Total 600 920 Output Total 2500 2800 Balance -1900 -1880 Result Diagrams: 07/28/19 02:14 07/31/19 06:37 Phys Exam - Physical Examination Constitutional: NAD HEENT: moist MMs, sclera anicteric Neck: supple, full ROM Respiratory: no wheezing, no rales, no rhonchi, clear to auscultation bilateral Cardiovascular: RRR, no significant murmur, no rub Gastrointestinal: soft, non-tender Musculoskeletal: no edema, pulses present Neurological: non-focal, normal sensation Psychiatric: normal affect, A&O x 3 Skin: no rash, normal turgor Dx/Plan (1) Acute on chronic diastolic (congestive) heart failure Code(s): I50.33 - ACUTE ON CHRONIC DIASTOLIC (CONGESTIVE) HEART FAILURE Status : Acute (2) Acute respiratory failure with hypoxia Code(s): J96.01 - ACUTE RESPIRATORY FAILURE WITH HYPOXIA Status: Acute (3) Flash pulmonary edema Code(s): J81.0 - ACUTE PULMONARY EDEMA Status: Acute (4) Hypertensive emergency Code(s): I16.1 - HYPERTENSIVE EMERGENCY Status: Acute (5) Hypertension Code(s): I10 - ESSENTIAL (PRIMARY) HYPERTENSION Status: Acute - Plan Plan: Patient is a 69M with PMHx of 2 strokes, 2 UT, and HTN that is admitted for hypertensive emergency, flash pulmonary edema, and new-onset CHF Acute on chronic diastolic CHF - Echo: EF 20-25%, Afib - On Coreg 3.125mg BID, Entresto, spironolactone and atorvastatin 40. ( Lisinopril discontinued) - Cardiology consulted, appreciate recommendations. Patient declined catheterization, instead desires medical management and lifevest. - Transition to po Lasix in preparation for d/c. - Awaiting recommendations from cardiology for lifevest and anticoagulation plan for d/c. Afib - Chadsvasc 6 - After discussion of risks and benefits, patient elected for full anticoagulation. On therapeutic lovenox. HTN - Entresto and Coreg as above Hx of CVA/[place] - Start Atorvastatin and ASA Hypertensive Emergency, resolved Flash pulmonary edema, w/ acute hypoxic respiratory failure, resolved DVT ppx: therapeutic lovenox Diet: HH Dispo: inpatient, stable Code: Full PCP: none-CC
[2019-07-31 07:06] LABS: Anion Gap 13 mmol/L (10-20); BUN (Urea Nitrogen) 28 mg/dL (8.4-25.7); Calc. Creatinine Clearance 76 mL/min (70-130); Calcium 9.4 mg/dL (7.8-10.44); Carbon Dioxide 29 mmol/L (23-31); Chloride 105 mmol/L (98-107); Estimated GFR-MDRD 65; Glucose 96 mg/dL (80-115); Potassium 3.6 mmol/L (3.5-5.1); Sodium 143 mmol/L (136-145)
[2019-07-31] MEDS: Sacubitril 24.5 MG/Valsartan 25.5 MG TABLET PO SCH (08:58)
[2019-07-31] MEDS: Aspirin 325 mg Enteric Coated Tablet PO SCH (08:58)
[2019-07-31] MEDS: Furosemide 20 MG TAB PO SCH (08:58)
[2019-07-31] MEDS: Sulfameth/Trimethoprim DS 800-160mg TAB PO SCH ×2 (08:59→22:02)
[2019-07-31] MEDS: Enoxaparin Sodium 100 MG/ML SYRINGE SC SCH ×2 (08:59→22:02)
[2019-07-31] MEDS: Spironolactone 25 MG TAB PO SCH (08:59)
[2019-07-31] MEDS ORDERED: Carvedilol 6.25 MG TAB PO SCH (09:00)
[2019-07-31] MEDS: Carvedilol 3.125 MG TAB PO SCH (09:05)
[2019-07-31] MEDS ORDERED: Carvedilol 3.125 MG TAB PO SCH (17:00)
[2019-07-31] MEDS: Carvedilol 6.25 MG TAB PO SCH (17:44)
[2019-07-31] MEDS: Atorvastatin Calcium 40 MG TAB PO SCH (22:01)
[2019-08-01] MEDS: Sacubitril 24.5 MG/Valsartan 25.5 MG TABLET PO SCH (02:08)
[2019-08-01] MEDS: Enoxaparin Sodium 100 MG/ML SYRINGE SC SCH ×2 (08:39→20:57)
[2019-08-01] MEDS: Spironolactone 25 MG TAB PO SCH (08:39)
[2019-08-01] MEDS: Carvedilol 6.25 MG TAB PO SCH ×2 (08:40→16:28)
[2019-08-01] MEDS: Sulfameth/Trimethoprim DS 800-160mg TAB PO SCH ×2 (08:40→20:57)
[2019-08-01] MEDS: Aspirin 325 mg Enteric Coated Tablet PO SCH (08:41)
[2019-08-01] MEDS: Furosemide 20 MG TAB PO SCH (08:41)
--- NOTE | 2019-08-01 09:01 | PDOC.FM ---
- Subjective Subjective: Pt denies SOB, chest pain, abdominal pain, - Objective MAR Reviewed: Yes Vital Signs & Weight: Vital Signs (12 hours) Temp Pulse Resp BP Pulse Ox 08/01/19 07:41 93 L 08/01/19 04:30 97.8 F 65 16 148/85 H 93 L Weight Weight 86.682 kg Most Recent Monitor Data Heart Rate from ECG 103 NIBP 112/84 NIBP BP-Mean 93 Respiration from ECG 19 SpO2 98 I&O: 07/31/19 08/01/19 08/02/19 06:59 06:59 06:59 Intake Total 1130 Output Total 975 Balance 155 Result Diagrams: 07/28/19 02:14 07/31/19 06:37 Phys Exam - Physical Examination Constitutional: NAD HEENT: moist MMs Neck: no JVD Respiratory: no wheezing, clear to auscultation bilateral Cardiovascular: RRR, no significant murmur Gastrointestinal: soft, non-tender, no distention, positive bowel sounds Musculoskeletal: pulses present, edema present (trace) Neurological: moves all 4 limbs Psychiatric: A&O x 3 Skin: cap refill <2 seconds Dx/Plan (1) Acute on chronic diastolic (congestive) heart failure Code(s): I50.33 - ACUTE ON CHRONIC DIASTOLIC (CONGESTIVE) HEART FAILURE Status : Acute (2) Acute respiratory failure with hypoxia Code(s): J96.01 - ACUTE RESPIRATORY FAILURE WITH HYPOXIA Status: Acute (3) Flash pulmonary edema Code(s): J81.0 - ACUTE PULMONARY EDEMA Status: Acute (4) Hypertensive emergency Code(s): I16.1 - HYPERTENSIVE EMERGENCY Status: Acute (5) Hypertension Code(s): I10 - ESSENTIAL (PRIMARY) HYPERTENSION Status: Acute - Plan Plan: This is a 69 yo male with a pmh of HFpEF, HTN, Hx of DC/CVA Acute on chronic HFrEF -On coreg, entresto, and spironolactone, and atorvastatin -Cardiology consulted -Po lasix -Pending cardiology recommendations for life vest and anticoagulation Afib -Chadsvasc 6 -On therapeutic lovenox at this time HTN -As above Hx of CVA/DC -Statin and ASA Addendum - Attending - Attending Attestation Date/Time: 08/01/19 1127 I personally evaluated the patient and discussed the management with Dr. Portillo. I agree with the History, Examination, Assessment and Plan documented above with any addition or exceptions noted below. 69 yo M admitted for new onset acute HFrEF with a history of DC. Pt had flash pulmonary edema and acute hypercapnic respiratory failure with HTN emergency which is now resolved. Patient is awaiting a life-vest as well as cardiology's recommendations. He is also being treated for UTI with bactrim during his stay. This will need outpatient follow up for resolution.
--- NOTE | 2019-08-01 17:50 | PDOC.CPN ---
- Subjective Date: 08/01/19 Time: 17:47 Interval history: No new issues. Breathing at baseline. - Review of Systems General: denies: fever/chills, weight/appetite/sleep changes, night sweats, fatigue Respiratory: denies: cough, congestion, shortness of breath, exercise intolerance Cardiovascular: denies: chest pain, palpitation, edema, paroxysmal nocturnal dyspnea, orthopnea Gastrointestinal: denies: nausea, vomiting, diarrhea, constipation, abd pain, GI bleeding Musculoskeletal: denies: pain, tenderness, stiffness, swelling, arthritis/ arthralgias Neurological: denies: numbness, syncope, seizure, weakness - Objective Allergies/Adverse Reactions: Allergies Allergy/AdvReac Type Severity Reaction Status Date / Time No Known Allergies Allergy Verified 03/10/14 00:26 Visit Medications: Current Medications Acetaminophen (Tylenol) 650 mg PO Q4H PRN PRN Reason: Headache/Fever/Mild Pain (1-3) Aspirin (Ecotrin) 325 mg PO DAILY [facility] Last Admin: 08/01/19 08:41 Dose: 325 mg Atorvastatin Calcium (Lipitor) 40 mg PO [facility] Last Admin: 07/31/19 22:01 Dose: 40 mg Carvedilol (Coreg) 12.5 mg PO BID[facility] Last Admin: 08/01/19 16:28 Dose: 12.5 mg Enoxaparin Sodium (Lovenox) 90 mg SC 0900,2100 [facility] Last Admin: 08/01/19 08:39 Dose: 90 mg Furosemide (Lasix) 20 mg PO DAILY [facility] Last Admin: 08/01/19 08:41 Dose: 20 mg Hydralazine HCl (Apresoline) 5 mg SLOW IVP Q15MIN PRN PRN Reason: SBP > 180 Loperamide HCl (Imodium) 2 mg PO PRN PRN PRN Reason: Diarrhea/Loose Stools Ondansetron HCl (Zofran Odt) 4 mg PO Q6H PRN PRN Reason: Nausea/Vomiting Sacubitril/Valsartan (Entresto 24 Mg-26 Mg Tablet) 1 tab PO BID [facility] Last Admin: 08/01/19 08:41 Dose: 1 tab Spironolactone (Aldactone) 12.5 mg PO QAM[facility] Last Admin: 08/01/19 08:39 Dose: 12.5 mg Trimethoprim/Sulfamethoxazole (Bactrim Ds) 1 tab PO BID [facility] Stop: 08/02/19 21:01 Last Admin: 08/01/19 08:40 Dose: 1 tab Vital Signs & Weight: Vital Signs Temp Pulse Pulse Pulse Resp BP BP 08/01/19 17:15 97.6 F 68 18 08/01/19 14:35 75 75 123/77 123/77 08/01/19 12:09 97.4 F L 78 17 08/01/19 08:00 97.2 F L 76 17 08/01/19 07:41 BP Pulse Ox 08/01/19 17:15 113/66 96 08/01/19 14:35 08/01/19 12:09 124/59 L 93 L 08/01/19 08:00 124/68 93 L 08/01/19 07:41 93 L Weight 191 lb 1.6 oz - Physical Exam General: alert & oriented x3 HEENT: mucus membranes moist Neck: supple neck Cardiac: regular rate and rhythm, no murmur Lungs: normal breath sounds Neuro: grossly intact Abdomen: active bowel sounds Extremities: no edema Skin: clear Musculoskeletal: no pain - Labs Result Diagrams: 07/28/19 02:14 07/31/19 06:37 Troponin/CKMB CK-MB (CK-2) 2.1 ng/mL (0-6.6) 07/28/19 02:14 Troponin I 0.051 ng/mL (< 0.028) H 07/28/19 02:14 - Telemetry Sinus rhythms and dysrhythmias: sinus rhythm - Assessment/Plan Assessment/Plan: 1. New onset dilated CM 2. Acute on chronic systolic heart failure EF at 20-25% 3. Chronic afib, rate controlled. 4. Hx of CVA PLAN: - Doing better. - Will re evaluate as outpatient in 4-6 weeks and up titrate his medications as much as possible. If medical therapy does not make his LV function improve he states he may be interested in [facility]. - Continue guideline directed medical therapy. - May discharge once lifevest placed.
[2019-08-01] MEDS: Atorvastatin Calcium 40 MG TAB PO SCH (20:57)
--- NOTE | 2019-08-02 06:32 | PDOC.FM ---
- Subjective Subjective: Pt reports he is doing well. He denies chest pain, SOB, palpitations, nausea, or abdominal pain. He states overnight he was scratching at a tele lead prior to the nurse coming in worried that he was in a different cardiac rhythm - Objective MAR Reviewed: Yes Vital Signs & Weight: Vital Signs (12 hours) Temp Pulse Resp BP BP Pulse Ox 08/02/19 03:11 98.7 F 64 18 124/64 92 L 08/02/19 00:07 97.3 F L 63 22 H 114/73 95 08/02/19 00:00 115/60 08/01/19 20:44 97.3 F L 62 16 132/78 96 08/01/19 20:00 96 Weight Weight 86.682 kg Most Recent Monitor Data Heart Rate from ECG 103 NIBP 112/84 NIBP BP-Mean 93 Respiration from ECG 19 SpO2 98 I&O: 07/31/19 08/01/19 08/02/19 06:59 06:59 06:59 Intake Total 1130 600 Output Total 975 500 Balance 155 100 Result Diagrams: 07/28/19 02:14 07/31/19 06:37 Phys Exam - Physical Examination Constitutional: NAD HEENT: moist MMs Neck: no JVD Good air movement, crackles in bilateral bases Cardiovascular: RRR, no significant murmur Gastrointestinal: soft, non-tender, no distention, positive bowel sounds Musculoskeletal: pulses present, edema present (trace) Neurological: normal sensation, moves all 4 limbs Psychiatric: A&O x 3 Skin: cap refill <2 seconds Dx/Plan (1) Acute on chronic diastolic (congestive) heart failure Code(s): I50.33 - ACUTE ON CHRONIC DIASTOLIC (CONGESTIVE) HEART FAILURE Status : Acute (2) Acute respiratory failure with hypoxia Code(s): J96.01 - ACUTE RESPIRATORY FAILURE WITH HYPOXIA Status: Acute (3) Flash pulmonary edema Code(s): J81.0 - ACUTE PULMONARY EDEMA Status: Acute (4) Hypertensive emergency Code(s): I16.1 - HYPERTENSIVE EMERGENCY Status: Acute (5) Hypertension Code(s): I10 - ESSENTIAL (PRIMARY) HYPERTENSION Status: Acute - Plan Plan: This is a 69 yo male with a pmh of HFpEF, HTN, Hx of [place]/CVA Acute on chronic HFrEF -On coreg, entresto, and spironolactone, and atorvastatin -Cardiology consulted -Po lasix -Pending life vest Afib -Chadsvasc 6 -On therapeutic lovenox at this time UTI -DC bactrim today HTN -As above Hx of CVA/[place] -Statin and ASA Short run of Vtach overnight -Non-sustained, likely 2/2 to HFrEF Addendum - Attending - Attending Attestation Date/Time: 08/02/19 1002 I personally evaluated the patient and discussed the management with Dr. Portillo. I agree with the History, Examination, Assessment and Plan documented above with any addition or exceptions noted below. Feels baseline. NSVT overnight. Awaiting Life-Vest.
[2019-08-02] MEDS: Carvedilol 6.25 MG TAB PO SCH ×2 (08:57→18:04)
[2019-08-02] MEDS: Furosemide 20 MG TAB PO SCH (08:57)
[2019-08-02] MEDS: Spironolactone 25 MG TAB PO SCH (08:57)
[2019-08-02] MEDS: Sulfameth/Trimethoprim DS 800-160mg TAB PO SCH ×2 (08:58→21:04)
[2019-08-02] MEDS: Enoxaparin Sodium 100 MG/ML SYRINGE SC SCH ×2 (08:58→21:04)
[2019-08-02] MEDS: Aspirin 325 mg Enteric Coated Tablet PO SCH (08:58)
--- NOTE | 2019-08-02 16:38 | PDOC.CPN ---
- Subjective Date: 08/02/19 Time: 16:35 Interval history: He is doing well. No chest pain, tightness, pressure, SOB. - Review of Systems General: denies: fever/chills, weight/appetite/sleep changes, night sweats, fatigue Respiratory: denies: cough, congestion, shortness of breath, exercise intolerance Cardiovascular: denies: chest pain, palpitation, edema, paroxysmal nocturnal dyspnea, orthopnea Gastrointestinal: denies: nausea, vomiting, diarrhea, constipation, abd pain, GI bleeding Musculoskeletal: denies: pain, tenderness, stiffness, swelling, arthritis/ arthralgias Neurological: denies: numbness, syncope, seizure, weakness - Objective Allergies/Adverse Reactions: Allergies Allergy/AdvReac Type Severity Reaction Status Date / Time No Known Allergies Allergy Verified 03/10/14 00:26 Visit Medications: Current Medications Acetaminophen (Tylenol) 650 mg PO Q4H PRN PRN Reason: Headache/Fever/Mild Pain (1-3) Aspirin (Ecotrin) 325 mg PO DAILY [facility] Last Admin: 08/02/19 08:58 Dose: 325 mg Atorvastatin Calcium (Lipitor) 40 mg PO HS [facility] Last Admin: 08/01/19 20:57 Dose: 40 mg Carvedilol (Coreg) 12.5 mg PO BID-[facility] Last Admin: 08/02/19 08:57 Dose: 12.5 mg Enoxaparin Sodium (Lovenox) 90 mg SC 0900,2100 [facility] Last Admin: 08/02/19 08:58 Dose: 90 mg Furosemide (Lasix) 20 mg PO DAILY [facility] Last Admin: 08/02/19 08:57 Dose: 20 mg Hydralazine HCl (Apresoline) 5 mg SLOW IVP Q15MIN PRN PRN Reason: SBP > 180 Loperamide HCl (Imodium) 2 mg PO PRN PRN PRN Reason: Diarrhea/Loose Stools Ondansetron HCl (Zofran Odt) 4 mg PO Q6H PRN PRN Reason: Nausea/Vomiting Sacubitril/Valsartan (Entresto 24 Mg-26 Mg Tablet) 1 tab PO BID [facility] Last Admin: 08/02/19 08:58 Dose: 1 tab Spironolactone (Aldactone) 12.5 mg PO QAM[facility] Last Admin: 08/02/19 08:57 Dose: 12.5 mg Trimethoprim/Sulfamethoxazole (Bactrim Ds) 1 tab PO BID [facility] Stop: 08/02/19 21:01 Last Admin: 08/02/19 08:58 Dose: 1 tab Vital Signs & Weight: Vital Signs Temp Pulse Pulse Pulse Resp BP BP 08/02/19 15:31 97.7 F 69 24 H 08/02/19 11:41 08/02/19 11:33 97.4 F L 62 22 H 08/02/19 10:56 62 94 109/54 L 118/61 08/02/19 08:10 97.3 F L 75 18 08/02/19 06:00 97.3 F L 63 22 H BP BP Pulse Ox 08/02/19 15:31 131/77 93 L 08/02/19 11:41 93 L 08/02/19 11:33 109/54 L 95 08/02/19 10:56 08/02/19 08:10 121/71 93 L 08/02/19 06:00 114/74 95 Weight 191 lb 1.6 oz - Physical Exam General: alert & oriented x3 HEENT: mucus membranes moist Neck: supple neck Cardiac: regular rate and rhythm Lungs: normal breath sounds Neuro: weakness Abdomen: active bowel sounds Extremities: no edema Skin: clear Musculoskeletal: no pain - Labs Result Diagrams: 07/28/19 02:14 07/31/19 06:37 Troponin/CKMB CK-MB (CK-2) 2.1 ng/mL (0-6.6) 07/28/19 02:14 Troponin I 0.051 ng/mL (< 0.028) H 07/28/19 02:14 - Telemetry Supraventricular conduction: atrial fibrillation - Assessment/Plan Assessment/Plan: 1. New onset dilated CM 2. Acute on chronic systolic heart failure EF at 20-25% 3. Chronic afib, rate controlled. 4. Hx of CVA PLAN: - CV stable - Re evaluate in 4-6 weeks to up titrate medications. If medical therapy does not make his LV function improve he states he may be interested in [facility]. - Continue guideline directed medical therapy. - May discharge once lifevest placed. - He is aware that due to his left sided weakness he may not be able to use a lifevest. Will find out when training happens. - Home once lifevest teaching done, hopefully placement.
[2019-08-02] MEDS: Atorvastatin Calcium 40 MG TAB PO SCH (21:04)
--- NOTE | 2019-08-03 06:16 | PDOC.FM ---
- Subjective Subjective: Pt states that other than being a little cold, he is doing well this morning. He denies chest pain, SOB, nausea, vomiting, or abdominal pain. He states he is ready to get out of here. - Objective MAR Reviewed: Yes Vital Signs & Weight: Vital Signs (12 hours) Temp Pulse Resp BP Pulse Ox 08/03/19 03:25 97.1 F L 59 L 18 108/55 L 96 08/02/19 20:00 97.4 F L 65 20 110/62 95 Weight Weight 90.855 kg Most Recent Monitor Data Heart Rate from ECG 103 NIBP 112/84 NIBP BP-Mean 93 Respiration from ECG 19 SpO2 98 I&O: 08/01/19 08/02/19 08/03/19 06:59 06:59 06:59 Intake Total 6027 801 5405 Output Total 975 500 775 Balance 155 100 475 Result Diagrams: 07/28/19 02:14 07/31/19 06:37 Phys Exam - Physical Examination Constitutional: NAD HEENT: moist MMs Neck: no JVD Improving crackles in bases Cardiovascular: RRR, no significant murmur Gastrointestinal: soft, non-tender, no distention, positive bowel sounds Musculoskeletal: no edema, pulses present Neurological: moves all 4 limbs Psychiatric: A&O x 3 Skin: cap refill <2 seconds Dx/Plan (1) Acute on chronic diastolic (congestive) heart failure Code(s): I50.33 - ACUTE ON CHRONIC DIASTOLIC (CONGESTIVE) HEART FAILURE Status : Acute (2) Acute respiratory failure with hypoxia Code(s): J96.01 - ACUTE RESPIRATORY FAILURE WITH HYPOXIA Status: Acute (3) Flash pulmonary edema Code(s): J81.0 - ACUTE PULMONARY EDEMA Status: Acute (4) Hypertensive emergency Code(s): I16.1 - HYPERTENSIVE EMERGENCY Status: Acute (5) Hypertension Code(s): I10 - ESSENTIAL (PRIMARY) HYPERTENSION Status: Acute - Plan Plan: This is a 69 yo male with a pmh of HFpEF, HTN, Hx of [place]/CVA Acute on chronic HFrEF -On coreg, entresto, and spironolactone, and atorvastatin -Cardiology consulted -Po lasix -Pending life vest and home health acceptance Afib -Chadsvasc 6 -On therapeutic lovenox at this time UTI, resolved HTN -As above Hx of CVA/[place] -Statin and ASA Short run of Vtach overnight -Non-sustained, likely 2/2 to HFrEF Addendum - Attending - Attending Attestation Date/Time: 08/03/19 8942 I personally evaluated the patient and discussed the management with Dr. Andrew Portillo. I agree with the History, Examination, Assessment and Plan documented above with any addition or exceptions noted below. Pt is 69 yo M with acute HFrEF exacerbation, now stable, awaiting life vest prior to discharge per cardiology recommendations. try to obtain Rx for Leg brace pt. was in process of obtaining through dr. Oliva.
[2019-08-03] MEDS: Carvedilol 6.25 MG TAB PO SCH ×2 (09:01→18:11)
[2019-08-03] MEDS: Spironolactone 25 MG TAB PO SCH (09:01)
[2019-08-03] MEDS: Enoxaparin Sodium 100 MG/ML SYRINGE SC SCH ×2 (09:01→20:43)
[2019-08-03] MEDS: Furosemide 20 MG TAB PO SCH (09:01)
[2019-08-03] MEDS: Aspirin 325 mg Enteric Coated Tablet PO SCH (09:01)
--- NOTE | 2019-08-03 16:44 | PDOC.CPN ---
- Subjective Date: 08/03/19 Time: 16:43 Interval history: No new issues. Lifevest is still pending. - Review of Systems General: denies: fever/chills, weight/appetite/sleep changes, night sweats, fatigue Respiratory: denies: cough, congestion, shortness of breath, exercise intolerance Cardiovascular: denies: chest pain, palpitation, edema, paroxysmal nocturnal dyspnea, orthopnea Gastrointestinal: denies: nausea, vomiting, diarrhea, constipation, abd pain, GI bleeding Musculoskeletal: denies: pain, tenderness, stiffness, swelling, arthritis/ arthralgias Neurological: reports: weakness. denies: numbness, syncope, seizure - Objective Allergies/Adverse Reactions: Allergies Allergy/AdvReac Type Severity Reaction Status Date / Time No Known Allergies Allergy Verified 03/10/14 00:26 Visit Medications: Current Medications Acetaminophen (Tylenol) 650 mg PO Q4H PRN PRN Reason: Headache/Fever/Mild Pain (1-3) Aspirin (Ecotrin) 325 mg PO DAILY [facility] Last Admin: 08/03/19 09:01 Dose: 325 mg Atorvastatin Calcium (Lipitor) 40 mg PO HS [facility] Last Admin: 08/02/19 21:04 Dose: 40 mg Carvedilol (Coreg) 12.5 mg PO BID-[facility] Last Admin: 08/03/19 09:01 Dose: 12.5 mg Enoxaparin Sodium (Lovenox) 90 mg SC 0900,2100 [facility] Last Admin: 08/03/19 09:01 Dose: 90 mg Furosemide (Lasix) 20 mg PO DAILY [facility] Last Admin: 08/03/19 09:01 Dose: 20 mg Hydralazine HCl (Apresoline) 5 mg SLOW IVP Q15MIN PRN PRN Reason: SBP > 180 Loperamide HCl (Imodium) 2 mg PO PRN PRN PRN Reason: Diarrhea/Loose Stools Ondansetron HCl (Zofran Odt) 4 mg PO Q6H PRN PRN Reason: Nausea/Vomiting Sacubitril/Valsartan (Entresto 24 Mg-26 Mg Tablet) 1 tab PO BID [facility] Last Admin: 08/03/19 09:00 Dose: 1 tab Spironolactone (Aldactone) 12.5 mg PO QAM-[facility] Last Admin: 08/03/19 09:01 Dose: 12.5 mg Vital Signs & Weight: Vital Signs Temp Pulse Resp BP BP Pulse Ox 08/03/19 12:00 97.2 F L 71 16 107/66 96 08/03/19 08:15 97.4 F L 82 20 125/62 96 Weight 200 lb 4.8 oz - Physical Exam General: alert & oriented x3 HEENT: mucus membranes moist Neck: supple neck Cardiac: irregularly regular Lungs: normal breath sounds Neuro: grossly intact Abdomen: active bowel sounds Extremities: no edema Skin: clear Musculoskeletal: no pain - Labs Result Diagrams: 07/28/19 02:14 07/31/19 06:37 Troponin/CKMB CK-MB (CK-2) 2.1 ng/mL (0-6.6) 07/28/19 02:14 Troponin I 0.051 ng/mL (< 0.028) H 07/28/19 02:14 - Telemetry Supraventricular conduction: atrial fibrillation - Assessment/Plan Assessment/Plan: 1. New onset dilated CM 2. Acute on chronic systolic heart failure EF at 20-25% 3. Chronic afib, rate controlled. 4. Hx of CVA PLAN: - CV stable - Re evaluate in 4-6 weeks to up titrate medications. If medical therapy does not make his LV function improve he states he may be interested in [facility]. - Continue guideline directed medical therapy. - May discharge once lifevest placed. - He is aware that due to his left sided weakness he may not be able to use a lifevest. Will find out when training happens. - Home once lifevest teaching done, hopefully placement. - Will sign out, please call with any questions.
[2019-08-03] MEDS: Atorvastatin Calcium 40 MG TAB PO SCH (20:44)
--- NOTE | 2019-08-04 06:40 | PDOC.FM ---
- Subjective Subjective: Pt reports he is doing well this morning. He denies SOB, chest pain, PEREZ, or abdominal pain. He has been fitted with his life vest. - Objective MAR Reviewed: Yes Vital Signs & Weight: Vital Signs (12 hours) Temp Pulse Resp BP Pulse Ox 08/04/19 06:23 120/76 08/04/19 04:00 97.4 F L 81 20 94 L 08/03/19 20:00 98.4 F 68 18 98/64 95 Weight Weight 90.855 kg Most Recent Monitor Data Heart Rate from ECG 103 NIBP 112/84 NIBP BP-Mean 93 Respiration from ECG 19 SpO2 98 I&O: 08/02/19 08/03/19 08/04/19 06:59 06:59 06:59 Intake Total 600 1250 940 Output Total 500 775 920 Balance 100 475 20 Result Diagrams: 07/28/19 02:14 07/31/19 06:37 Phys Exam - Physical Examination Constitutional: NAD Respiratory: clear to auscultation bilateral Clear bases Cardiovascular: no significant murmur Rat controlled, irregular rhythm Gastrointestinal: soft, non-tender, no distention, positive bowel sounds Musculoskeletal: pulses present, edema present (trace) Neurological: moves all 4 limbs Psychiatric: A&O x 3 Skin: cap refill <2 seconds Dx/Plan (1) Acute on chronic diastolic (congestive) heart failure Code(s): I50.33 - ACUTE ON CHRONIC DIASTOLIC (CONGESTIVE) HEART FAILURE Status : Acute (2) Acute respiratory failure with hypoxia Code(s): J96.01 - ACUTE RESPIRATORY FAILURE WITH HYPOXIA Status: Acute (3) Flash pulmonary edema Code(s): J81.0 - ACUTE PULMONARY EDEMA Status: Acute (4) Hypertensive emergency Code(s): I16.1 - HYPERTENSIVE EMERGENCY Status: Acute (5) Hypertension Code(s): I10 - ESSENTIAL (PRIMARY) HYPERTENSION Status: Acute - Plan Plan: This is a 69 yo male with a pmh of HFpEF, HTN, Hx of [place]/CVA Acute on chronic HFrEF -On coreg, entresto, and spironolactone, and atorvastatin -Cardiology consulted -Po lasix -Pending life vest and home health acceptance Afib -Chadsvasc 6 -On therapeutic lovenox at this time UTI, resolved HTN -As above Hx of CVA/[place] -Statin and ASA Short run of Vtach overnight -Non-sustained, likely 2/2 to HFrEF Addendum - Attending - Attending Attestation Date/Time: 08/04/19 1124 I personally evaluated the patient and discussed the management with Dr. Portillo. I agree with the History, Examination, Assessment and Plan documented above with any addition or exceptions noted below. Received LifeVest. Stable for D/C.
[2019-08-04] MEDS: Carvedilol 6.25 MG TAB PO SCH (09:31)
[2019-08-04] MEDS: Spironolactone 25 MG TAB PO SCH (09:32)
[2019-08-04] MEDS: Furosemide 20 MG TAB PO SCH (09:33)
[2019-08-04] MEDS: Aspirin 325 mg Enteric Coated Tablet PO SCH (09:33)
[2019-08-04] MEDS: Enoxaparin Sodium 100 MG/ML SYRINGE SC SCH (09:34)
[2019-08-04 12:25] VITALS: BP 109/58; TEMP 98
--- NOTE | 2019-08-04 12:56 | PDOC.CPN ---
- Subjective Date: 08/04/19 Time: 12:54 Interval history: He had his Lifevest fitted. - Review of Systems General: denies: fever/chills, weight/appetite/sleep changes, night sweats, fatigue Respiratory: denies: cough, congestion, shortness of breath, exercise intolerance Cardiovascular: denies: chest pain, palpitation, edema, paroxysmal nocturnal dyspnea, orthopnea Gastrointestinal: denies: nausea, vomiting, diarrhea, constipation, abd pain, GI bleeding Musculoskeletal: denies: pain, tenderness, stiffness, swelling, arthritis/ arthralgias Neurological: denies: numbness, syncope, seizure, weakness - Objective Allergies/Adverse Reactions: Allergies Allergy/AdvReac Type Severity Reaction Status Date / Time No Known Allergies Allergy Verified 03/10/14 00:26 Visit Medications: Current Medications Acetaminophen (Tylenol) 650 mg PO Q4H PRN PRN Reason: Headache/Fever/Mild Pain (1-3) Aspirin (Ecotrin) 325 mg PO DAILY [facility] Last Admin: 08/04/19 09:33 Dose: 325 mg Atorvastatin Calcium (Lipitor) 40 mg PO [facility] Last Admin: 08/03/19 20:44 Dose: 40 mg Carvedilol (Coreg) 12.5 mg PO BID-[facility] Last Admin: 08/04/19 09:31 Dose: 12.5 mg Enoxaparin Sodium (Lovenox) 90 mg SC 0900,2100 [facility] Last Admin: 08/04/19 09:34 Dose: 90 mg Furosemide (Lasix) 20 mg PO DAILY [facility] Last Admin: 08/04/19 09:33 Dose: 20 mg Hydralazine HCl (Apresoline) 5 mg SLOW IVP Q15MIN PRN PRN Reason: SBP > 180 Loperamide HCl (Imodium) 2 mg PO PRN PRN PRN Reason: Diarrhea/Loose Stools Ondansetron HCl (Zofran Odt) 4 mg PO Q6H PRN PRN Reason: Nausea/Vomiting Sacubitril/Valsartan (Entresto 24 Mg-26 Mg Tablet) 1 tab PO BID [facility] Last Admin: 08/04/19 09:33 Dose: 1 tab Spironolactone (Aldactone) 12.5 mg PO QAM-[facility] Last Admin: 08/04/19 09:32 Dose: 12.5 mg Vital Signs & Weight: Vital Signs Temp Pulse Resp BP BP BP Pulse Ox 08/04/19 11:15 98.0 F 77 17 109/58 L 95 08/04/19 09:31 120/65 08/04/19 08:05 98 08/04/19 07:52 97.7 F 75 20 120/65 98 08/04/19 06:23 120/76 08/04/19 04:00 97.4 F L 81 20 94 L Weight 200 lb 4.8 oz - Physical Exam General: alert & oriented x3 HEENT: mucus membranes moist, normocephaly Neck: supple neck Cardiac: irregularly regular Lungs: clear to auscultation Neuro: weakness Abdomen: active bowel sounds Extremities: no edema Skin: clear Musculoskeletal: no pain - Labs Result Diagrams: 07/28/19 02:14 07/31/19 06:37 Troponin/CKMB CK-MB (CK-2) 2.1 ng/mL (0-6.6) 07/28/19 02:14 Troponin I 0.051 ng/mL (< 0.028) H 07/28/19 02:14 - Telemetry Supraventricular conduction: atrial fibrillation - Assessment/Plan Assessment/Plan: 1. New onset dilated CM 2. Acute on chronic systolic heart failure EF at 20-25% 3. Chronic afib, rate controlled. 4. Hx of CVA PLAN: - CV stable - Re evaluate in 4-6 weeks to up titrate medications. If medical therapy does not make his LV function improve he states he may be interested in [facility]. - Continue guideline directed medical therapy. - Answered questions about lifevest and follow up. - May discharge any time from cardiac perspective. - Will sign off. Call with questions.
[2019-08-04 14:42] VITALS: BMI 31.8
--- NOTE | 2019-08-05 05:34 | DIS ---
DATE OF ADMISSION: 07/27/2019 DATE OF DISCHARGE: 08/04/2019 DISCHARGE ATTENDING: Dr. Jose M Luna. RESIDENT: Andrew Portillo DO. CONSULTS: 1. Dr. Matt Rubi, Cardiology. 2. Dr. Villa Newberry, Pulmonology. PRIMARY DIAGNOSES: 1. Hypertensive emergency. 2. Flash pulmonary edema. 3. Acute hypoxic respiratory failure. 4. Acute on chronic diastolic heart failure. SECONDARY DIAGNOSES: 1. Coronary artery disease. 2. History of cerebrovascular accident with left-sided deficit. PROCEDURES: 1. Chest x-ray showing possible volume overload, superimposed bibasilar pneumonia or aspiration. 2. Echocardiogram done on 07/28/2019, shows technically difficult exam, EF of 20 % to 25%, diastolic dysfunction, indeterminate, due to atrial fibrillation, mitral annular calcifications present, mild mitral regurgitation, aortic valve sclerosis but opens well, mild tricuspid regurgitation. DISCHARGE MEDICATIONS: 1. Eliquis 5 mg p.o. b.i.d. 2. Atorvastatin 40 mg p.o. h.s. 3. Carvedilol 12.5 mg p.o. b.i.d. 4. Furosemide 20 mg p.o. daily. 5. Entresto 24-26. 6. Spironolactone 25 mg p.o. q.a.m. with meals. 7. Aspirin 325 mg p.o. daily. DISCONTINUED MEDICATIONS: None. BRIEF HISTORY OF PRESENT ILLNESS/HOSPITAL COURSE: This is a 69-year-old male with past medical history as above, who presents with acute shortness of breath, daughter comes with the understanding that he appeared to be hyperventilating. The patient reports quitting smoking about a month ago and smoked 1 cigarette today, which may be the cause of shortness of breath. He denied chest pain at that time, as well as resting on BiPAP in the ER. Initial blood pressure in the ED was 208/162 . The patient was started on nitroglycerin drip and labetalol, was moved to the critical care unit for closer monitoring. On 07/29/2019, the patient was moved to tele. Cardiology was consulted due to his condition and states that he only wants medications. No procedures done at this time. He is not interested in heart catheterization, defibrillators, or LifeVest. Only holistic [facility]. He is DNR/ DNI. The patient was continued to be IV diuresed until he reached or neared euvolemia. The patient did agree to wear a LifeVest for this time being. The patient's insurance did not approve this until the day of discharge. The patient also had a UTI, E coli that was resistant to fluoroquinolones and ampicillin. The patient was treated with 3 days of Bactrim and was not sent home on any medications for this. The patient had 2 blood cultures that were negative and C diff antigen studies due to diarrhea that came back negative. DISPOSITION: Stable. DISCHARGE INSTRUCTIONS: 1. Location: Home with home health. 2. Diet: Heart healthy, low sodium. 3. Activity: As tolerated. 4. Follow up with Dr. Latham, Dr. Rubi as instructed. Job ID: [id number] MTDD
--- NOTE | 2019-08-08 17:10 | EKG ---
Test Reason : Blood Pressure : / mmHG Vent. Rate : 109 BPM Atrial Rate : 109 BPM P-R Int : 154 ms QRS Dur : 104 ms QT Int : 382 ms P-R-T Axes : 036 018 070 degrees QTc Int : 514 ms Sinus tachycardia with occasional Premature ventricular complexes Otherwise normal ECG When compared with ECG of 27-JUL-2019 16:02, (Unconfirmed) Premature ventricular complexes are now Present Confirmed by CASA TUCKER M.D. ([id number]) on 08/08/2019 5:10:22 PM Referred By: GARRETT Confirmed By:CASA TUCKER M.D.
== END 2019-08-04 16:34 | disposition home health service (06) | DRG 291 ==
LOC: ERS 15:46 → ERHOLD 17:12 → IMCU/EMU 07-28 00:50 → 2NO 07-29 01:45
PROVIDERS: ADMIT Emergency Medicine; ATTEND Emergency Medicine
DX: I11.0 Hypertensive heart disease with heart failure (principal); J96.01 Acute respiratory failure with hypoxia; I16.1 Hypertensive emergency; N39.0 Urinary tract infection, site not specified; I69.954 Hemiplegia and hemiparesis following unspecified cerebrovascular disease affecting left non-dominant side; Z16.11 Resistance to penicillins; Z16.23 Resistance to quinolones and fluoroquinolones; I50.33 Acute on chronic diastolic (congestive) heart failure; I25.10 Atherosclerotic heart disease of native coronary artery without angina pectoris; I48.91 Unspecified atrial fibrillation; I08.1 Rheumatic disorders of both mitral and tricuspid valves; I25.2 Old myocardial infarction; B96.20 Unspecified Escherichia coli [E. coli] as the cause of diseases classified elsewhere; Z87.442 Personal history of urinary calculi; I42.0 Dilated cardiomyopathy; Z66 Do not resuscitate
CPT/HCPCS: 36415; 51702; 71045; 80048; 80053; 80061; 81003; 81015; 82553; 82805; 83036; 83605; 83690; 83735; 83880; 84443; 84484; 85025; 87040; 87077; 87086; 87186; 87324; 87449; 90471; 90662; 90670; 93005; 93010; 93306; 93798; 94660; 94760; 96365; 96366; 96374; 96375; 96376; G0008; G0009; J1650; J1940

== ENCOUNTER 2020-03-15 09:06 | Emergency (ER) | payer MEDICARE ==
[2020-03-15] MEDS ORDERED: Amlodipine 5 MG TAB ONE (09:38)
[2020-03-15 09:59] LABS: #Eosinphils 0.1 thou/uL (0.0-0.7); #Lymphocytes 1.3 thou/uL (1.20-3.40); #Monocytes 0.5 thou/uL (0.11-0.59); #Neutrophils 5.3 thou/uL (1.40-6.50); %Basophils 0.4 % (0.0-1.0); %Eosinophils 1.7 % (0.0-10.0); %Lymphocytes 17.5 % (21.0-51.0); %Monocytes 6.8 % (0.0-10.0); %Neutrophils 73.6 % (42.0-75.0); Hemoglobin 16.1 g/dL (14.0-18.0); Mean Corpuscular HGB CONC 32.4 g/dL (32.0-36.0); Mean Corpuscular Hemoglobin 28.9 pg (27.0-31.0); Mean Corpuscular Volume 89.3 fL (78.0-98.0); Mean Platelet Volume 7.8 fL (7.4-10.4); Platelet Count 171 thou/uL (130-400); RBC Distribution Width 13.8 % (11.5-14.5); Red Blood Cell (RBC) Count 5.57 mill/uL (4.70-6.10); White Blood Cell (WBC) Count 7.3 thou/uL (4.8-10.8)
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
[2020-03-15 10:17] LABS: ALT (SGPT) 9 U/L (8-55); AST (SGOT) 13 U/L (5-34); Albumin 4.3 g/dL (3.4-4.8); Alkaline Phosphatase 75 U/L (40-110); Anion Gap 10 mmol/L (10-20); BUN (Urea Nitrogen) 22 mg/dL (8.4-25.7); Bilirubin, Total 0.4 mg/dL (0.2-1.2); Calc. Creatinine Clearance 0 mL/min (70-130); Calcium 10.3 mg/dL (7.8-10.44); Carbon Dioxide 33 mmol/L (23-31); Chloride 102 mmol/L (98-107); Estimated GFR-MDRD 67; Globulin 3.2 g/dL (2.4-3.5); Glucose 145 mg/dL (80-115); Potassium 3.9 mmol/L (3.5-5.1); Protein, Total 7.5 g/dL (5.8-8.1); Sodium 141 mmol/L (136-145)
[2020-03-15 10:40] LABS: CKMB 2.6 ng/mL (0-6.6)
== END 2020-03-15 12:44 | disposition home or self-care (01) ==
LOC: ERS 09:06
DX: S00.12XA Contusion of left eyelid and periocular area, initial encounter (principal); I10 Essential (primary) hypertension; I25.2 Old myocardial infarction; F41.9 Anxiety disorder, unspecified; Z86.73 Personal history of transient ischemic attack (TIA), and cerebral infarction without residual deficits; Z87.891 Personal history of nicotine dependence; W05.1XXA Fall from non-moving nonmotorized scooter, initial encounter
CPT/HCPCS: 36415; 71045; 80053; 82553; 84484; 85025; 93005

== ENCOUNTER 2022-04-05 13:59 | Emergency (ER) | payer MEDICARE, MEDICAID ==
[2022-04-05 14:58] LABS: ALT (SGPT) 7 U/L (8-55); AST (SGOT) 14 U/L (5-34); Albumin 3.9 g/dL (3.4-4.8); Alkaline Phosphatase 90 U/L (40-110); Anion Gap 18 mmol/L (10-20); BUN (Urea Nitrogen) 20 mg/dL (8.4-25.7); Bilirubin, Total 0.4 mg/dL (0.2-1.2); Calc. Creatinine Clearance 0 mL/min (70-130); Calcium 9.4 mg/dL (7.8-10.44); Carbon Dioxide 26 mmol/L (23-31); Chloride 102 mmol/L (98-107); Estimated GFR 70; Globulin 3.2 g/dL (2.4-3.5); Glucose 150 mg/dL (83-110); Potassium 4.6 mmol/L (3.5-5.1); Protein, Total 7.1 g/dL (5.8-8.1); Sodium 141 mmol/L (136-145)
[2022-04-05] MEDS ORDERED: Acetaminophen 500 MG TAB ONE (17:08)
[2022-04-05] MEDS ORDERED: Ketorolac Tromethamine 30 MG/ML VIAL ONE (17:08)
[2022-04-05] MEDS ORDERED: Lidocaine Viscous Sol 2% 15 ml UD Cup ONE ×2 (17:09→18:07)
[2022-04-05] MEDS ORDERED: Lidocaine 4% Cream 5 GM TUBE w/ Tegaderm ONE (18:05)
== END 2022-04-05 18:51 ==
LOC: ERS 13:59
DX: S01.511A Laceration without foreign body of lip, initial encounter (principal); S00.03XA Contusion of scalp, initial encounter; K08.89 Other specified disorders of teeth and supporting structures; I10 Essential (primary) hypertension; Z87.891 Personal history of nicotine dependence; Z86.73 Personal history of transient ischemic attack (TIA), and cerebral infarction without residual deficits; Z79.899 Other long term (current) drug therapy; Z79.82 Long term (current) use of aspirin; Y04.2XXA Assault by strike against or bumped into by another person, initial encounter
CPT/HCPCS: 12011; 70450; 80053; 96374; J1885

== ENCOUNTER 2024-05-20 23:19 | Emergency (ER) | payer MEDICARE, MEDICAID ==
[2024-05-20] MEDS ORDERED: Morphine 4 MG/ML VIAL ONE (23:50)
[2024-05-20] MEDS ORDERED: Ondansetron PF 4 MG/2 ML Vial ONE (23:50)
[2024-05-21 00:04] LABS: #Basophils Less than 0.03 10x3/uL (0.0-0.2); %Basophils 0.2 % (0.0-1.0); %Eosinophils 2.7 % (0.0-10.0); %Lymphocytes 16.1 % (21.0-51.0); %Monocytes 8.9 % (0.0-10.0); %Neutrophils 71.6 % (42.0-75.0); Hemoglobin 12.6 g/dL (14.0-18.0); Mean Corpuscular HGB CONC 31.5 g/dL (32.0-36.0); Mean Corpuscular Hemoglobin 27.2 pg (27.0-31.0); Mean Corpuscular Volume 86.4 fL (78.0-98.0); Mean Platelet Volume 9.8 fL (7.4-10.4); Platelet Count 213 10x3/uL (130-400); RBC Distribution Width 15.7 % (11.5-14.5); Red Blood Cell (RBC) Count 4.63 mill/uL (4.70-6.10)
[2024-05-21 00:23] LABS: ALT (SGPT) 15 U/L (8-55); AST (SGOT) 20 U/L (5-34); Albumin 3.6 g/dL (3.4-4.8); Alkaline Phosphatase 105 U/L (40-110); Anion Gap 12 mmol/L (10-20); BUN (Urea Nitrogen) 16 mg/dL (8.4-25.7); Bilirubin, Total 0.4 mg/dL (0.2-1.2); Calc. Creatinine Clearance 0 mL/min (70-130); Carbon Dioxide 27 mmol/L (23-31); Chloride 104 mmol/L (98-107); Estimated GFR 90; Globulin 3.5 g/dL (2.4-3.5); Glucose 122 mg/dL (83-110); Lipase 23 U/L (8-78); Potassium 4.7 mmol/L (3.5-5.1); Protein, Total 7.1 g/dL (5.8-8.1); Sodium 138 mmol/L (136-145)
[2024-05-21] MEDS ORDERED: Iopamidol 370 76% 100 ML VIAL ONE (09:56)
== END 2024-05-21 06:46 | disposition home or self-care (01) ==
LOC: ERS 23:19
DX: R10.31 Right lower quadrant pain (principal); B37.49 Other urogenital candidiasis; I48.91 Unspecified atrial fibrillation; I25.2 Old myocardial infarction; I11.0 Hypertensive heart disease with heart failure; I50.9 Heart failure, unspecified; Z79.82 Long term (current) use of aspirin; Z87.891 Personal history of nicotine dependence; Z79.899 Other long term (current) drug therapy
CPT/HCPCS: 71275; 74174; 80053; 83690; 85025; 93005; 96374; 96375; 99284; J2272; J2405; Q9967; 36415

== ENCOUNTER 2024-08-13 07:57 | Inpatient (IN) | payer MEDICARE, MEDICAID ==
[2024-08-13] MEDS ORDERED: Sodium Chloride 0.9% 100 ML ONE (08:24)
[2024-08-13] MEDS ORDERED: Piperacillin/Tazobactam 3.375 GM VIAL ONE (08:24)
[2024-08-13 08:33] LABS: #Basophils 0.04 10x3/uL (0.0-0.2); #Eosinophils Less than 0.03 10x3/uL (0.0-0.7); %Basophils 0.2 % (0.0-1.0); %Eosinophils 0.1 % (0.0-10.0); %Monocytes 6.4 % (0.0-10.0); %Neutrophils 88.7 % (42.0-75.0); Hematocrit 39.4 % (42.0-52.0); Hemoglobin 12.8 g/dL (14.0-18.0); Mean Corpuscular HGB CONC 32.5 g/dL (32.0-36.0); Mean Corpuscular Hemoglobin 28.3 pg (27.0-31.0); Mean Corpuscular Volume 87.2 fL (78.0-98.0); Mean Platelet Volume 9.9 fL (7.4-10.4); Platelet Count 192 10x3/uL (130-400); RBC Distribution Width 15.7 % (11.5-14.5); Red Blood Cell (RBC) Count 4.52 mill/uL (4.70-6.10)
[2024-08-13 08:53] LABS: ALT (SGPT) 9 U/L (8-55); AST (SGOT) 13 U/L (5-34); Albumin 3.7 g/dL (3.4-4.8); Alkaline Phosphatase 82 U/L (40-110); Anion Gap 15 mmol/L (10-20); BUN (Urea Nitrogen) 27 mg/dL (8.4-25.7); Bilirubin, Total 0.7 mg/dL (0.2-1.2); Calc. Creatinine Clearance 0 mL/min (70-130); Calcium 8.7 mg/dL (7.8-10.44); Carbon Dioxide 21 mmol/L (23-31); Chloride 107 mmol/L (98-107); Estimated GFR 67; Globulin 3.3 g/dL (2.4-3.5); Glucose 123 mg/dL (83-110); Potassium 4.7 mmol/L (3.5-5.1); Sodium 138 mmol/L (136-145)
[2024-08-13 10:51] LABS: Troponin I 0.011 ng/mL (< 0.028)
[2024-08-13] MEDS ORDERED: Guaifenesin DM 100-10/5 ML UDCUP PO PRN (11:45)
[2024-08-13] MEDS ORDERED: Calcium Carbonate 500 MG ChewTAB PO PRN (11:50)
[2024-08-13] MEDS ORDERED: Acetaminophen 650 MG Suppository PR PRN (11:50)
[2024-08-13] MEDS ORDERED: Ipratropium Bromide 2.5 ml Neb NEB PRN (11:50)
[2024-08-13] MEDS ORDERED: Ondansetron ODT 4 MG TAB PO PRN (11:50)
[2024-08-13] MEDS ORDERED: Acetaminophen 325 MG TAB PO PRN (11:50)
[2024-08-13] MEDS ORDERED: Ondansetron PF 4 MG/2 ML Vial IVP PRN (11:50)
[2024-08-13] MEDS ORDERED: Vancomycin (BATCH) 2 GM/500 ML BAG ONE (14:06)
[2024-08-13 17:04] LABS: #Basophils Less than 0.03 10x3/uL (0.0-0.2); #Eosinophils Less than 0.03 10x3/uL (0.0-0.7); %Basophils 0.1 % (0.0-1.0); %Lymphocytes 4.6 % (21.0-51.0); %Monocytes 6.6 % (0.0-10.0); %Neutrophils 87.7 % (42.0-75.0); Hematocrit 28.9 % (42.0-52.0); Hemoglobin 8.9 g/dL (14.0-18.0); Mean Corpuscular HGB CONC 30.8 g/dL (32.0-36.0); Mean Corpuscular Hemoglobin 28.3 pg (27.0-31.0); Mean Corpuscular Volume 91.7 fL (78.0-98.0); Platelet Count 131 10x3/uL (130-400); RBC Distribution Width 15.9 % (11.5-14.5); Red Blood Cell (RBC) Count 3.15 mill/uL (4.70-6.10)
[2024-08-13 17:17] LABS: ALT (SGPT) 8 U/L (8-55); AST (SGOT) 12 U/L (5-34); Alkaline Phosphatase 65 U/L (40-110); Anion Gap 15 mmol/L (10-20); BUN (Urea Nitrogen) 29 mg/dL (8.4-25.7); Bilirubin, Total 0.6 mg/dL (0.2-1.2); Calc. Creatinine Clearance 0 mL/min (70-130); Calcium 7.7 mg/dL (7.8-10.44); Carbon Dioxide 22 mmol/L (23-31); Chloride 109 mmol/L (98-107); Estimated GFR 56; Globulin 2.9 g/dL (2.4-3.5); Glucose 174 mg/dL (83-110); Potassium 4.6 mmol/L (3.5-5.1); Protein, Total 5.9 g/dL (5.8-8.1); Sodium 141 mmol/L (136-145)
[2024-08-13] MEDS: Ipratropium/Albuterol 3 ML NEB NEB SCH (18:01)
[2024-08-13] MEDS: methylPREDNISolone Sod Succ 40 MG VIAL IVP SCH (18:08)
[2024-08-13 18:35] VITALS: BMI 37.8
[2024-08-13] MEDS: Atorvastatin Calcium 40 MG TAB PO SCH (20:42)
[2024-08-13] MEDS: Famotidine 20 MG TAB PO SCH (20:42)
[2024-08-13] MEDS: Sacubitril 49 MG/Valsartan 51 MG TABLET PO SCH (20:42)
[2024-08-13] MEDS: Cefepime 2 GM in Sodium Chloride 0.9% 100 ML IVPB SCH (20:43)
[2024-08-13] MEDS: Lidocaine 4% Patch TD SCH (20:43)
[2024-08-13] MEDS ORDERED: Vancomycin 1 GM in Sodium Chloride 0.9% 250 ML 300 ML IVPB SCH (21:00)
[2024-08-13] MEDS: Vancomycin 1 GM in Premix 1 BAG IVPB SCH (23:59)
[2024-08-14 05:11] LABS: #Basophils 0.04 10x3/uL (0.0-0.2); #Eosinophils Less than 0.03 10x3/uL (0.0-0.7); %Basophils 0.2 % (0.0-1.0); %Lymphocytes 4.2 % (21.0-51.0); %Monocytes 2.9 % (0.0-10.0); Hematocrit 37.4 % (42.0-52.0); Hemoglobin 11.4 g/dL (14.0-18.0); Mean Corpuscular HGB CONC 30.5 g/dL (32.0-36.0); Mean Corpuscular Hemoglobin 27.7 pg (27.0-31.0); Mean Platelet Volume 10.4 fL (7.4-10.4); Platelet Count 185 10x3/uL (130-400); RBC Distribution Width 15.9 % (11.5-14.5); Red Blood Cell (RBC) Count 4.11 mill/uL (4.70-6.10)
[2024-08-14 06:10] LABS: Anion Gap 16 mmol/L (10-20); BUN (Urea Nitrogen) 31 mg/dL (8.4-25.7); Calc. Creatinine Clearance 90 mL/min (70-130); Calcium 8.4 mg/dL (7.8-10.44); Carbon Dioxide 21 mmol/L (23-31); Chloride 108 mmol/L (98-107); Estimated GFR 69; Glucose 115 mg/dL (83-110); Magnesium 2.2 mg/dL (1.6-2.6); Potassium 4.8 mmol/L (3.5-5.1); Sodium 140 mmol/L (136-145)
[2024-08-14 06:12] LABS: Vancomycin, Random 20.4 ug/mL (See Comment)
[2024-08-14] MEDS: Enoxaparin 40 MG (0.4 mL) SYRINGE SC SCH (08:23)
[2024-08-14] MEDS: Aspirin 325 MG TAB PO SCH (08:23)
[2024-08-14] MEDS: Transdermal Patch Removal TOP SCH (08:23)
[2024-08-14] MEDS: Furosemide 20 MG TAB PO SCH (08:23)
[2024-08-14] MEDS ORDERED: Electrolyte Replacement Protocol 1 EACH FS SCH (13:43)
[2024-08-14] MEDS: Doxycycline 100 MG CAP PO SCH ×2 (15:04→21:24)
[2024-08-14] MEDS: Carvedilol 3.125 MG TAB PO SCH (17:27)
[2024-08-14] MEDS ORDERED: Vancomycin 1 GM in Premix 1 BAG IVPB SCH (21:00)
[2024-08-14] MEDS: Sacubitril 49 MG/Valsartan 51 MG TABLET PO SCH (21:24)
[2024-08-14] MEDS: Multivit, Therapeutic 1 TAB PO SCH (21:24)
[2024-08-15 05:15] LABS: #Basophils Less than 0.03 10x3/uL (0.0-0.2); #Eosinophils Less than 0.03 10x3/uL (0.0-0.7); %Basophils 0.1 % (0.0-1.0); %Lymphocytes 5.7 % (21.0-51.0); %Monocytes 7.8 % (0.0-10.0); %Neutrophils 85.7 % (42.0-75.0); Hematocrit 35.6 % (42.0-52.0); Hemoglobin 11.2 g/dL (14.0-18.0); Mean Corpuscular HGB CONC 31.5 g/dL (32.0-36.0); Mean Corpuscular Hemoglobin 28.4 pg (27.0-31.0); Mean Corpuscular Volume 90.4 fL (78.0-98.0); Mean Platelet Volume 10.4 fL (7.4-10.4); Platelet Count 186 10x3/uL (130-400); RBC Distribution Width 15.4 % (11.5-14.5); Red Blood Cell (RBC) Count 3.94 mill/uL (4.70-6.10)
[2024-08-15 05:35] LABS: Anion Gap 13 mmol/L (10-20); BUN (Urea Nitrogen) 29 mg/dL (8.4-25.7); Calc. Creatinine Clearance 105 mL/min (70-130); Calcium 8.4 mg/dL (7.8-10.44); Carbon Dioxide 24 mmol/L (23-31); Chloride 108 mmol/L (98-107); Estimated GFR 82; Glucose 114 mg/dL (83-110); Magnesium 2.3 mg/dL (1.6-2.6); Potassium 4.8 mmol/L (3.5-5.1); Sodium 140 mmol/L (136-145)
[2024-08-15] MEDS: predniSONE 20 MG TAB PO SCH (10:27)
[2024-08-16 04:42] LABS: #Basophils 0.04 10x3/uL (0.0-0.2); #Eosinophils Less than 0.03 10x3/uL (0.0-0.7); %Basophils 0.4 % (0.0-1.0); %Eosinophils 0.2 % (0.0-10.0); %Lymphocytes 11.5 % (21.0-51.0); Hematocrit 34.8 % (42.0-52.0); Mean Corpuscular HGB CONC 31.6 g/dL (32.0-36.0); Mean Corpuscular Hemoglobin 27.8 pg (27.0-31.0); Mean Corpuscular Volume 87.9 fL (78.0-98.0); Mean Platelet Volume 9.6 fL (7.4-10.4); Platelet Count 178 10x3/uL (130-400); RBC Distribution Width 15.3 % (11.5-14.5); Red Blood Cell (RBC) Count 3.96 mill/uL (4.70-6.10)
[2024-08-16 05:13] LABS: Anion Gap 10 mmol/L (10-20); BUN (Urea Nitrogen) 27 mg/dL (8.4-25.7); Calc. Creatinine Clearance 106 mL/min (70-130); Calcium 8.3 mg/dL (7.8-10.44); Carbon Dioxide 26 mmol/L (23-31); Chloride 107 mmol/L (98-107); Estimated GFR 86; Glucose 93 mg/dL (83-110); Potassium 4.4 mmol/L (3.5-5.1); Sodium 139 mmol/L (136-145)
[2024-08-16] MEDS ORDERED: Bupivacaine 0.25% HCL 30 ML VIAL ONE (06:39)
[2024-08-16] MEDS ORDERED: Lidocaine 1% (PF) 30 ML VIAL ONE (06:39)
[2024-08-16] MEDS ORDERED: EPINEPHrine 1 MG/ML VIAL ONE (06:39)
[2024-08-16] MEDS: Carvedilol 6.25 MG TAB PO SCH (10:05)
[2024-08-18] MEDS: Senokot S 8.6-50 MG TAB PO PRN (11:25)
[2024-08-18 11:29] VITALS: TEMP 98
[2024-08-18 13:08] VITALS: BP 126/71
== END 2024-08-18 15:03 | DRG 871 ==
LOC: ERS 07:57 → 2NO 17:47
PROVIDERS: ADMIT Internal Medicine; ATTEND Internal Medicine
DX: A41.59 Other Gram-negative sepsis (principal); J15.69 Pneumonia due to other Gram-negative bacteria; J96.01 Acute respiratory failure with hypoxia; I50.22 Chronic systolic (congestive) heart failure; I13.0 Hypertensive heart and chronic kidney disease with heart failure and stage 1 through stage 4 chronic kidney disease, or unspecified chronic kidney disease; N17.9 Acute kidney failure, unspecified; I69.354 Hemiplegia and hemiparesis following cerebral infarction affecting left non-dominant side; E87.20 Acidosis, unspecified; I48.0 Paroxysmal atrial fibrillation; R65.20 Severe sepsis without septic shock; E78.5 Hyperlipidemia, unspecified; I25.10 Atherosclerotic heart disease of native coronary artery without angina pectoris; Z66 Do not resuscitate; I25.2 Old myocardial infarction; Z87.891 Personal history of nicotine dependence; N18.30 Chronic kidney disease, stage 3 unspecified
CPT/HCPCS: 36415; 36416; 71045; 80048; 80053; 80202; 83605; 83735; 83880; 84145; 84484; 85025; 85379; 87040; 87081; 87428; 93005; 94640; 94760; 96365; 96375; J0171; J0665; J0692; J1642; J1650; J2543; J2919; J3370; J7512; J7620